=== PATIENT | female | born 1970 | race Caucasian/White ===

== ENCOUNTER 2018-06-01 21:59 | Emergency (ER) | payer BC ==
[2018-06-01] MEDS ORDERED: cloNIDine HCl 0.1 MG TAB ONE (22:44)
--- NOTE | 2018-06-01 23:36 | ER ---
Nurse's Notes [facility] Name: Sloane Meza Age: 48 yrs Sex: Female : 1970 Arrival Date: 06/01/2018 Time: 22:01 Bed 26 Private MD: Mark Pierce T Diagnosis: Hypertensive Urgency ;Essential (primary) hypertension Presentation: 06/01 22:22 Presenting complaint: Patient states: her blood pressure is high and she has a headache bb was seen at [facility] earlier today had CT of head which was normal and they gave her a Xanax but it did not help. Transition of care: patient was not received from another setting of care. Onset of symptoms was May 29, 2018. Risk Assessment: Do you want to hurt yourself or someone else? Patient reports no desire to harm self or others. Initial Sepsis Screen: Does the patient meet any 2 criteria? No. Patient's initial sepsis screen is negative. Does the patient have a suspected source of infection? No. Patient's initial sepsis screen is negative. Care prior to arrival: None. 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 - Social history:: Smoking status: Patient uses tobacco products, smokes one-half pack cigarettes per day, Patient uses alcohol, occasionally. Patient/guardian denies using street drugs. - Ebola Screening: : No symptoms or risks identified at this time. Screenin:51 Abuse screen: Denies threats or abuse. Nutritional screening: No deficits noted. jd3 Tuberculosis screening: No symptoms or risk factors identified. Fall Risk Ambulatory Aid- None/Bed Rest/Nurse Assist (0 pts). Gait- Normal/Bed Rest/Wheelchair (0 pts) Mental Status- Oriented to own ability (0 pts). Total Duran Fall Scale indicates No Risk (0-24 pts). Assessment: 22:47 General: Appears in no apparent distress. uncomfortable, Behavior is calm, cooperative, jd3 appropriate for age. Pain: Complains of pain in head Quality of pain is described as aching. Neuro: Level of Consciousness is awake, alert, obeys commands, Oriented to person, place, time, situation, Moves all extremities. Full function Gait is steady, Speech is normal, Facial symmetry appears normal, Pupils are PERRLA, Intact. Cardiovascular: Capillary refill < 3 seconds Patient's skin is warm and dry. Respiratory: Airway is patent Respiratory effort is even, unlabored, Respiratory pattern is regular, symmetrical. GI: Abdomen is round Abd is soft and non tender X 4 quads. Reports nausea, Patient currently denies constipation, diarrhea, vomiting. : No signs and/or symptoms were reported regarding the genitourinary system. EENT: No signs and/or symptoms were reported regarding the EENT system. Derm: Skin is intact, Skin is dry, Skin is normal, Skin temperature is warm. Musculoskeletal: Circulation, motion, and sensation intact. Range of motion: intact in all extremities. 23:24 Reassessment: Patient appears in no apparent distress at this time. Patient and/or jd3 family updated on plan of care and expected duration. Pain level reassessed. Patient is alert, oriented x 3, equal unlabored respirations, skin warm/dry/pink. 23:43 Reassessment: Patient appears in no apparent distress at this time. Patient and/or jd3 family updated on plan of care and expected duration. Pain level reassessed. Patient is alert, oriented x 3, equal unlabored respirations, skin warm/dry/pink. pt reported understanding of discharge instructions, even and steady gait upon discharge. Vital Signs: 22:24 BP 179 / 111; Pulse 92; Resp 18 S; Temp 98.8(O); Pulse Ox 98% on R/A; Weight 70.31 kg bb (R); Height 5 ft. 4 in. (162.56 cm) (R); 23:23 BP 144 / 91; Pulse 78; Resp 16 S; Pulse Ox 97% on R/A; jd3 22:24 Body Mass Index 26.61 (70.31 kg, 162.56 cm) ED Course: 22:01 Patient arrived in ED. am2 22:01 Mark Pierce MD is Private Physician. am2 22:17 Ge[facility] Camp [facility]. jr8 22:17 Cirilo Carter MD is Attending Physician. jr8 22:21 Panchito Cole, RN is Primary Nurse. jd3 22:23 Triage completed. bb 22:24 Arm band placed on Patient placed in an exam room, on a stretcher, on pulse oximetry. bb Family accompanied patient. 22:51 Patient has correct armband on for positive identification. Bed in low position. Call jd3 light in reach. Side rails up X 1. Adult w/ patient. 23:34 Mark Pierce MD is Referral Physician. jr8 23:42 No provider procedures requiring assistance completed. Patient did not have IV access jd3 during this emergency room visit. Administered Medications: 22:47 Drug: cloNIDine 0.1 mg Route: PO; jd3 23:43 Follow up: Response: No adverse reaction; Blood pressure is lowered jd3 Outcome: 23:35 Discharge ordered by MD. jr8 23:42 Discharged to home ambulatory, with family. jd3 23:42 Condition: stable 23:42 Discharge instructions given to patient, family, Instructed on discharge instructions, follow up and referral plans. Demonstrated understanding of instructions, follow-up care. 23:44 Patient left the ED. jd3 Signatures: Shaunna Correa, RN RN Geovanni Hassan PA PA jr8 Alicia Franklin am2 Panchito Cole RN RN jd3
--- NOTE | 2018-06-01 23:36 | EDPHYS ---
Physician Documentation [facility] Name: Sloane Meza Age: 48 yrs Sex: Female : 1970 Arrival Date: 06/01/2018 Time: 22:01 Bed 26 Private MD: Mark Pierce T ED Physician Cirilo Carter HPI: 06/01 23:30 This 48 yrs old Female presents to ER via Ambulatory with complaints of jr8 Nausea, High Blood Pressure. 23:30 Onset: The symptoms/episode began/occurred acutely, today. Severity of symptoms: At jr8 their worst the symptoms were moderate in the emergency department the symptoms are unchanged. The patient has not experienced similar symptoms in the past. The patient has been recently seen by a physician:. Patient stated that she had medication change for blood pressure about two weeks ago. Stated that today noticed that she had dizziness, nausea, numbness in right hand. Went to [place] and had CT of head done. No acute findings. Blood pressure markedly elevated at that time. Had been released. Stated that she had called PCP and told them to come to this ED for another evaluation . 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 - Social history:: Smoking status: Patient uses tobacco products, smokes one-half pack cigarettes per day, Patient uses alcohol, occasionally. Patient/guardian denies using street drugs. - Ebola Screening: : No symptoms or risks identified at this time. ROS: 23:30 Eyes: Negative for injury, pain, redness, and discharge, ENT: Negative for injury, jr8 pain, and discharge, Neck: Negative for injury, pain, and swelling, Cardiovascular: Negative for chest pain, palpitations, and edema, Respiratory: Negative for shortness of breath, cough, wheezing, and pleuritic chest pain, Abdomen/GI: Negative for abdominal pain, vomiting, diarrhea, and constipation. Positive for nausea Back: Negative for injury and pain, MS/Extremity: Negative for injury and deformity, Skin: Negative for injury, rash, and discoloration. 23:30 Neuro: Positive for dizziness, headache, Negative for altered mental status, gait disturbance, hearing loss, loss of consciousness, numbness, seizure activity, speech changes, syncope, near syncope, tingling, tinnitus, tremor, visual changes, weakness. Exam: 23:30 Eyes: Pupils equal round and reactive to light, extra-ocular motions intact. Lids and jr8 lashes normal. Conjunctiva and sclera are non-icteric and not injected. Cornea within normal limits. Periorbital areas with no swelling, redness, or edema. ENT: Nares patent. No nasal discharge, no septal abnormalities noted. Tympanic membranes are normal and external auditory canals are clear. Oropharynx with no redness, swelling, or masses, exudates, or evidence of obstruction, uvula midline. Mucous membranes moist. Neck: Trachea midline, no thyromegaly or masses palpated, and no cervical lymphadenopathy. Supple, full range of motion without nuchal rigidity, or vertebral point tenderness. No Meningismus. Cardiovascular: Regular rate and rhythm with a normal S1 and S2. No gallops, murmurs, or rubs. Normal PMI, no JVD. No pulse deficits. Respiratory: Lungs have equal breath sounds bilaterally, clear to auscultation and percussion. No rales, rhonchi or wheezes noted. No increased work of breathing, no retractions or nasal flaring. Abdomen/GI: Soft, non-tender, with normal bowel sounds. No distension or tympany. No guarding or rebound. No evidence of tenderness throughout. Back: No spinal tenderness. No costovertebral tenderness. Full range of motion. Skin: Warm, dry with normal turgor. Normal color with no rashes, no lesions, and no evidence of cellulitis. MS/ Extremity: Pulses equal, no cyanosis. Neurovascular intact. Full, normal range of motion. Neuro: Awake and alert, GCS 15, oriented to person, place, time, and situation. Cranial nerves II-XII grossly intact. Motor strength 5/5 in all extremities. Sensory grossly intact. Cerebellar exam normal. Normal gait. 23:35 ECG was reviewed by the Attending Physician. jr8 Vital Signs: 22:24 BP 179 / 111; Pulse 92; Resp 18 S; Temp 98.8(O); Pulse Ox 98% on R/A; Weight 70.31 kg bb (R); Height 5 ft. 4 in. (162.56 cm) (R); 23:23 BP 144 / 91; Pulse 78; Resp 16 S; Pulse Ox 97% on R/A; jd3 22:24 Body Mass Index 26.61 (70.31 kg, 162.56 cm) MDM: 22:17 Patient medically screened. jr8 23:32 Data reviewed: vital signs, nurses notes, EKG, and as a result, I will discharge jr8 patient. Data interpreted: Pulse oximetry: on room air is 97 %. Interpretation: normal. Counseling: I had a detailed discussion with the patient and/or guardian regarding: the historical points, exam findings, and any diagnostic results supporting the discharge/admit diagnosis, the need for outpatient follow up, a family practitioner, to return to the emergency department if symptoms worsen or persist or if there are any questions or concerns that arise at home. Response to treatment: the patient's symptoms have markedly improved after treatment. ED course: Patient feeling much better after lowering BP. Had her take metoprolol of her own as well. Told her that she needs to increase her metoprolol to 50 mg BID and continue losartan QD. To continue BP checks BID as well. If worse to come back. Otherwise to f/u with PCP in 48 hours . 06/01 23:34 Order name: EKG; Complete Time: 23:34 [facility] 06/01 23:32 Order name: EKG - Nurse/Tech; Complete Time: 23:34 jr8 EC:35 Rate is 64 beats/min. Rhythm is regular, Normal Sinus Rhythm. QRS [place] is Normal. [place] jr8 interval is normal at 142 msec. QRS interval is normal at 66 msec. QT interval is normal at 441 msec. No Q waves. T waves are Flattened in leads III, V3. No ST changes noted. Clinical impression: NSR w/ Non-specific ST/T Changes. Interpreted by me. Reviewed by me. Administered Medications: 22:47 Drug: cloNIDine 0.1 mg Route: PO; jd3 23:43 Follow up: Response: No adverse reaction; Blood pressure is lowered j Disposition: 06/01/18 23:35 Discharged to Home. Impression: Hypertensive Urgency , Essential (primary) hypertension. - Condition is Stable. - Discharge Instructions: Hypertension. - Medication Reconciliation Form, Thank You Letter, Antibiotic Education, Prescription Opioid Use form. - Follow up: Mark Pierce MD; When: 48 Hours; Reason: Recheck today's complaints, Continuance of care, Re-evaluation by your physician. - Problem is new. - Symptoms have improved. Signatures: Shaunna Correa RN RN Geovanni Hassan PA PA jr8 Panchito Cole RN RN jd3 Corrections: (The following items were deleted from the chart) 23:44 23:35 06/01/2018 23:35 Discharged to Home. Impression: Hypertensive Urgency ; Essential jd3 (primary) hypertension. Condition is Stable. Forms are Medication Reconciliation Form, Thank You Letter, Antibiotic Education, Prescription Opioid Use. Follow up: Mark Pierce; When: 48 Hours; Reason: Recheck today's complaints, Continuance of care, Re-evaluation by your physician. Problem is new. Symptoms have improved. jr8
--- NOTE | 2018-06-02 15:36 | EKG ---
Test Date: 2018-06-01 Test Time: 23:30:09 Transition Coach: MARY ANN MEASUREMENT RESULTS: Intervals: Rate: 64 IA: 142 QRSD: 66 QT: 428 QTc: 441 [place]: P: 63 IA: 142 QRS: 18 T: 52 INTERPRETIVE STATEMENTS: Normal sinus rhythm Anterior infarct, age undetermined Abnormal ECG Compared to ECG 04/02/2006 08:02:26 Myocardial infarct finding now present Sinus bradycardia no longer present Electronically Signed On 06-02-18 15:34:03 CDT by Stef Siddiqui
== END 2018-06-01 23:44 | disposition home or self-care (01) ==
LOC: ER 21:59
DX: I16.0 Hypertensive urgency (principal); I10 Essential (primary) hypertension; F17.210 Nicotine dependence, cigarettes, uncomplicated
CPT/HCPCS: 93005; 99283